=== PATIENT | female | born 1965 | race Caucasian/White ===

== ENCOUNTER 2018-09-26 10:18 | Emergency (ER) | payer OTHER, SELFPAY ==
[2018-09-26 10:19] VITALS: BP 141/81; PULSE 68; RESP 21; TEMP 36.4; O2SAT 98; BMI 21.8
--- NOTE | 2018-09-26 10:30 | EKG12_ITS ---
Test Reason : CHEST PAIN Blood Pressure : / mmHG Vent. Rate : 073 BPM Atrial Rate : 073 BPM P-R Int : 138 ms QRS Dur : 088 ms QT Int : 424 ms P-R-T Axes : 078 074 063 degrees QTc Int : 467 ms Normal sinus rhythm Septal infarct , age undetermined Abnormal ECG Confirmed by DANNA MADRID, JAI ([id number]), editor magazine DOV SHRESTHA ([id number]) on 09/27/2018 9:00:57 AM Referred By: Confirmed By:JAI CLAY MD
--- NOTE | 2018-09-26 10:33 | RAD_ITS ---
STUDY: X-RAY CHEST REASON FOR EXAM: Female, 53 years old. Chest pain TECHNIQUE: Portable upright AP chest COMPARISON: None. FINDINGS: Clear bilateral lungs exhibit hyperlucency in particular at the apices suggesting underlying COPD/emphysema. Correlate smoking history. No effusion or pneumothorax. Normal cardiomediastinal silhouette, narinder and pleural margins. No acute osseous or upper abdominal process. RAD/Chest 1 View (Portable) IMPRESSION: No acute cardiopulmonary process. Electronically Signed: Don Santiago MD at 10:54 EST Tel , Service support ,
[2018-09-26 10:35] VITALS: O2SAT 95
--- NOTE | 2018-09-26 10:35 | ED.VISSUMM ---
- ER Visit Summary Date of Service: 09/26/18 Chief Complaint: Chest pain History of Present Illness: The patient is a 53 F who was at work yesterday. 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 It has been there since yesterday and has worsened. She also feels the discomfort near the left scapular region. No nausea vomiting. The pain is worse with breathing. No change in smoker's cough. She is a pack-a-day smoker. No PE risk factors. No known early familial heart disease. She does note Mom and grandmother both had heart issues but cannot relay a formal diagnosis. She has not been to a physician in over 30 years. She states she is here at the request of her employer. Physical Examination: Afebrile vital signs are stable Gen: Well-nourished well-developed Head: Normocephalic atraumatic Eyes: Perrl EOMI ENT: TMs clear no rhinorrhea moist mucous membranes Neck: Supple no lymphadenopathy no JVD nontender CVS: Regular rate rhythm no murmurs normal S1-S2 Respiratory: No distress clear to auscultation bilaterally chest nontender Abdomen: Soft nontender nondistended normal bowel sounds no masses Back: Nontender Extremity: Nontender no edema Skin: Normal color no rash Neuro: alert orientated ?3 CN II-XII intact normal strength sensation reflexes gait cerebellar Psych: Normal affect normal mood Test Results: EKG shows a normal sinus rhythm at a rate of 73. CRP and sed rate were normal. Troponin negative (greater than 12-hour troponin with constant pain). Chest x-ray normal mediastinal silhouette. D-dimer in the normal range Emergency Department Course and Treatment: The patient I do not believe his pulmonary embolism (d-dimer) I do not believe she has ACS (negative troponin negative EKG). Do not believe this to be dissection.. I do not see evidence of pericarditis or endocarditis. I believe that this is most likely pleurisy. I do not believe is costochondritis as I cannot reproduce it with palpation. She is improved with a dose of Toradol. I will have her schedule anti-inflammatories (Motrin 800 mg 3 times daily). She is given referral to primary care. She was advised that because she does not have ACS today does not mean that she does not have a degree of heart disease. LAURA 0 Impression: 1. Acute chest pain 2. Pleurisy This note was generated with [employer] dictation software. It may contain incorrect words, spelling, and punctuation that were not noted in review of the chart prior to signing ED Disposition - Plan for ED Patient: Disposition: Home or Assisted Living Chief Complaint: Chest Pain Instructions: ED Chest Pain Pleurisy Referrals: Karly Gordon MD [STAFF PHYSICIAN] - (Call to arrange follow-up to establish with primary care) Additional Instructions: I would recommend Motrin 800 mg 3 times a day until symptoms resolve.
[2018-09-26] MEDS: Ketorolac 30 MG/ML Syringe IV (10:40)
[2018-09-26 10:54] LABS: Anion Gap 8 (5-15); BUN 8 mg/dL (7-18); BUN/Creat Ratio 10.6 RATIO (10-20); Chloride 105 mmol/L (98-107); Creatinine, Serum 0.76 mg/dL (0.55-1.02); EST Glomerular Filtration Rate 85 mL/min (>60); Est Glom Filt Rate - Afr Amer 103 mL/min (>60); Glucose 91 mg/dL (74-106); Potassium 3.4 mmol/L (3.5-5.1); Sodium Level 138 mmol/L (136-145)
[2018-09-26 10:55] LABS: Absolute Lymphocyte Count 2.91 X10^3/ul (0.83-4.51); Absolute Neutrophil Count 6.3 X10^3/uL (2.0-7.7); Basophil# 0.07 X10^3/uL; Basophil% 0.7 % (0-1); Eosinophil# 0.08 X10^3/uL; Eosinophils% 0.8 % (0-5); Hematocrit 42.4 % (37-47); Hemoglobin 14.2 g/dl (12.0-15.0); Lymphocyte # 2.91 X10^3/ul (4.0); Lymphocyte % 28.3 % (19-41); Mean Corp Hgb Conc 33.5 g/gl (32-36); Mean Corpuscular Volume 92.6 fL (81-99); Mean Platelet Vol. 9.8 fl (6.2-12.0); Monocyte# 0.89 X10^3/uL; Monocyte% 8.6 % (0-10); Neutrophil # 6.34 X10^3/uL (2.7-7.7); Neutrophil % 61.5 % (47-70); Platelet Count 361 K/mm3 (150-450); RBC Distribution Width CV 12.5 % (11.6-14.6); RBC Distribution Width SD 41.7 fl (35.1-43.9); Red Blood Count 4.58 M/mm3 (4.2-5.4); White Blood Count 10.3 K/mm3 (4.4-11.0)
[2018-09-26 10:59] LABS: POSITIVE COUNT NO; POSITIVE DIFFERENTIAL NO; POSITIVE MORPHOLOGY NO
[2018-09-26 11:15] LABS: Erythrocyte Sedimentation Rate 17 mm/hr (0-30)
[2018-09-26 11:19] VITALS: BP 123/77; PULSE 59; RESP 18; O2SAT 98
[2018-09-26 11:19] LABS: CRP < 2.90 mg/L (0.0-3.0)
[2018-09-26 12:09] VITALS: BP 148/96; PULSE 61; RESP 22; O2SAT 96
== END 2018-09-26 12:18 | disposition home or self-care (01) ==
PROVIDERS: Emergency Provider Emergency Medicine
DX: R09.1 Pleurisy (principal); R07.9 Chest pain, unspecified; F17.200 Nicotine dependence, unspecified, uncomplicated
CPT/HCPCS: 71045; 80048; 84484; 85025; 85379; 85652; 86140; 93005; 99284; A4216